=== PATIENT | female | born 1985 | race Caucasian/White ===

== ENCOUNTER 2018-09-18 15:50 | Emergency (ER) | END 2018-09-18 17:29 | disposition home or self-care (01) ==

== ENCOUNTER 2018-09-19 16:33 | Emergency (ER) | payer OTHER ==
[~2018-09-19] VITALS: Ht 167.6 cm; Wt 81.0 kg
[~2018-09-19 16:33] MED LIST: AMOX1TAB9 PO; CEPH-443 PO; IBUP-1542 PO; IBUP800T48 PO; SERT100T PO; SULF1TAB31 PO; TRAM50TA2 PO
[2018-09-19 16:37] VITALS: BP 150/93; PULSE 121; RESP 20; Ht 167.6 cm; Wt 81.0 kg
--- NOTE | 2018-09-19 17:31 | ERD ---
ER Documentation Chief Complaint Chief Complaint Patient here for a recheck HPI This is a 33-year-old female who presents emergency department today requesting information about her syphilis test. Denies any fevers or chills. ROS All systems reviewed and are negative except as per history of present illness. Medications Home Meds Active Scripts Ibuprofen* (Motrin*) 600 Mg Tab, 600 MG PO Q6, #30 TAB Prov:JL CHAUDHARI PA-C 06/17/17 Cephalexin* (Keflex*) 500 Mg Capsule, 500 MG PO QID for 7 Days, CAP Prov:JL CHAUDHARI PA-C 06/17/17 Sulfamethoxazole/Trimethoprim* (Bactrim Ds* Tablet) 1 Each Tablet, 1 TAB PO BID, #14 TAB Prov:JL CHAUDHAIR PA-C 06/17/17 Sertraline Hcl* (Zoloft*) 100 Mg Tablet, 100 MG PO DAILY, #30 TAB Prov:RUSSELL PINTO PA-C 09/03/16 Amoxicillin/Potassium Clav (Amox-Clav 500-125 mg Tablet) 500-125 mg Tab, 1 TAB PO BID for 7 Days, TAB Prov:RUSSELL PINTO PA-C 09/03/16 Ibuprofen* (Motrin*) 800 Mg Tab, 800 MG PO Q6, #30 TAB Prov:RUSSELL PINTO PA-C 09/03/16 Tramadol HCl (Tramadol HCl) 50 Mg Tablet, 50 MG PO Q4 PRN for PAIN, #20 TAB Prov:RUSSELL PINTO PA-C 09/03/16 Allergies Allergies: Coded Allergies: No Known Allergy (Unverified , 12/05/14) PMhx/Soc Denies any past medical history Hx Alcohol Use: No Hx Substance Use: No Hx Tobacco Use: No FmHx Family History: No diabetes, No coronary disease Physical Exam Vitals Vital Signs Date Temp Pulse Resp B/P (MAP) Pulse Ox O2 O2 Flow FiO2 Time Delivery Rate 09/19/18 97.7 121 20 150/93 99 16:37 (112) Physical Exam Const: No acute distress Head: Atraumatic Eyes: Normal Conjunctiva ENT: Normal External Ears, Nose and Mouth. Neck: Full range of motion. No meningismus. Resp: Clear to auscultation bilaterally Cardio: Regular rate and rhythm, no murmurs Abd: Soft, non tender, non distended. Normal bowel sounds Skin: No petechiae or rashes Neur: Awake and alert Psych: Normal Mood and Affect Procedures/MDM This is a 33-year-old female who presents emergency department today requesting information about her syphilis test that she had done yesterday. Upon review of patient's medical records patient was seen here requesting testing for sexually transmitted infections. Patient's RPR test is negative. She was given her results today. She may follow-up in the next 2-3 days about her gonorrhea and Chlamydia test. Patient denies any new complaints. At this time the patient is stable for discharge and outpatient management. Patient should follow up with their PCP in the next 1-2 days. They may return to the emergency department sooner for any persistent or worsening of symptoms. Patient understood and agreed with the plan. Departure Diagnosis: Primary Impression: Follow-up examination for injury Condition: Fair Additional Instructions: Call your primary care doctor TOMORROW for an appointment during the next 1-2 days.See the doctor sooner or return here if your condition worsens before your appointment time. RUSSELL PINTO PA-C Sep 19, 2018 17:31
== END 2018-09-19 17:34 | disposition home or self-care (01) ==
LOC: FTE 16:33
DX: Z09 Encounter for follow-up examination after completed treatment for conditions other than malignant neoplasm (principal)
CPT/HCPCS: 99281